=== PATIENT | male | born 1990 ===

== ENCOUNTER 2023-07-15 14:01 | Emergency (ER) | payer SELFPAY ==
[2023-07-15 14:11] VITALS: BP 169/99; PULSE 85; RESP 17; TEMP 36.4; O2SAT 100
--- NOTE | 2023-07-15 15:23 | PC.NURSE ---
Pt ambulatory to intake desk and states not wanting to be seen due to wait time. Pt ambulated out in NAD w/ steady gait.
== END 2023-07-15 15:23 | disposition left against medical advice (07) ==
DX: R11.0 Nausea (principal)
CPT/HCPCS: 99199